=== PATIENT | male | born 1970 | race Caucasian/White ===

== ENCOUNTER 2020-02-22 20:03 | Emergency (ER) | payer OTHER, SELFPAY ==
[2020-02-22 20:03] VITALS: BP 147/88; PULSE 88; RESP 18; TEMP 36.9; O2SAT 97; BMI 29.7
[2020-02-22 20:23] VITALS: BP 128/92; PULSE 97; RESP 17; O2SAT 98
--- NOTE | 2020-02-22 20:56 | ED_ITS ---
HPI - Wound/Laceration General: Chief Complaint: Wound/Laceration Stated Complaint: Right Foot Lac Time Seen by Provider: 02/22/20 20:04 History of Present Illness: HPI narrative: 50-year-old male comes in today with injury to the right foot. Patient reports stepping out of the boat and twisting his foot lacerating it on a sharp rock. Patient has been able to ambulate without any difficulty or pain to the ankle or foot. Patient is concerned about the laceration and need for repair. Patient does report use of alcohol. Patient appears well. Patient appears in mild pain. Review of Systems General: Reports: 10 or more systems reviewed and unremarkable except in HPI and below Skin/Breast: Reports: other (Laceration right foot.) Physical Exam Const: COMMON NORMALS: no acute distress and patient oriented x3 GENERAL APPEARANCE: cooperative HENMT: COMMON NORMALS: normocephalic and Normal external nose present HEAD & SCALP: normal to inspection and normocephalic NOSE: Normal external nose present Eye: GENERAL EYE: appearance normal, both eyes and all related structures Neck/C-Spine: COMMON NORMALS: full ROM Chest: COMMONS NORMALS: normal inspection of the chest Resp: COMMON NORMALS: normal respiratory effort EFFORT & INSPECTION: Yes able to speak in complete sentences Cardio: COMMON NORMALS: regular rate and regular rhythm RATE: regular rate RHYTHM: regular rhythm GI: COMMON NORMALS: non-tender Back/Pelvis: COMMON NORMALS: thoracic and lumbar spine normal to inspection Extremity: COMMON NORMALS: normal to inspection Neuro: COMMON NORMALS: patient oriented x3 and moves all extremities Psych: COMMON NORMALS: mental status grossly normal and cooperative Skin: NARRATIVE SKIN EXAM: V-shaped flap to the dorsal right foot. Bleeding is controlled. Normal tendon function. Patient is weightbearing without pain. Laceration is proximally 7 cm. Procedures Laceration Laceration 1: Site: lower extremity Side (If applicable): right Size (cm): 7 Description: flap Depth: simple, single layer Local Anesthetic: lidocaine 1% and with epi Amount of anesthesia used (mL): 10 Pre-repair: wound explored and irrigated extensively Skin layer closed with: nylon Size (cm): 4-0 Number of sutures: 13 Technique: simple, interrupted Course Vital Signs: Vital signs: Vital Signs Temperature 98.5 F 02/22/20 20:03 Pulse Rate 97 02/22/20 20:23 Respiratory Rate 17 02/22/20 20:23 Blood Pressure 128/92 02/22/20 20:23 Pulse Oximetry 98 02/22/20 20:23 MDM - Wound/Laceration MDM Narrative: Medical decision making narrative: Patient comes in with laceration to the right foot. On exam we note a V-shaped flap laceration. Patient has good range of motion of the extremity without elicitation of pain or crepitus. Pulses are intact. Prompt capillary refill is noted. Differential diagnosis includes fracture, laceration, sprain. Reviewed exam with patient he refused x-ray as he has been ambulate without difficulty. Examination of wound noted no foreign body. Wound was closed with 13 sutures. Patient tolerated well under local anesthesia. Reviewed postprocedure care and need for suture removal and antibiotic prophylaxis. Patient reports understanding agreed to plan. Discharge Plan Discharge Patient Disposition: Home Clinical Impression: Laceration Condition: Stable Prescriptions: New cephalexin 500 mg capsule 500 mg PO BID 10 Days Qty: 20 RF: 0 Discharge Orders: Discharge Order (Routine); Ordered 02/22/20 Ordered By: Danny Francois Discharge Diet: Usual diet Discharge Activity: Increase activity as tolerated Patient Instructions: Laceration (ED) Activity Restrictions/Additional Instructions: Keep wound clean and dry. Sutures need to be removed in 7 to 10 days. Take antibiotics as directed. Use acetaminophen and ibuprofen for pain. Healthy diet and exercise. Follow-up with primary care in 1 week for recheck. Return to emergency department for new concerns. Coding Level of Care Code ED Director Financial Planning for Abelardo Frances
[2020-02-22] MEDS: cephALEXin 500 mg Capsule PO (21:07)
[2020-02-22 21:13] VITALS: PULSE 80; RESP 16; O2SAT 96
== END 2020-02-22 21:13 | disposition home or self-care (01) ==
PROVIDERS: Emergency Provider Nurse Practitioner Family
DX: S91.311A Laceration without foreign body, right foot, initial encounter (principal); W26.8XXA Contact with other sharp object(s), not elsewhere classified, initial encounter
CPT/HCPCS: 12002; 12345; 99281; 99283